=== PATIENT | female | born 1960 | race Caucasian/White ===

== ENCOUNTER 2018-09-21 09:05 | Emergency (ER) | payer MEDICAID ==
[2018-09-21] MEDS ORDERED: KETOROLAC 60 MG/2 ML VIAL IM STA (10:44)
[2018-09-21] MEDS ORDERED: ONDANSETRON ODT 4 MG TAB PO STA (10:45)
[2018-09-21] MEDS ORDERED: MORPHINE SULFATE 4 MG/ML SYRINGE IM STA (10:45)
--- NOTE | 2018-09-21 10:47 | ED ---
General Adult HPI - General Chief complaint: Extremity Injury, Lower Stated complaint: hip pain Time Seen by Provider: 09/21/18 10:00 Source: patient, EMS, RN notes reviewed Mode of arrival: EMS Limitations: no limitations - History of Present Illness Initial comments: This is a 58 year old female who presents emergency Department with a couple week history of right hip pain. Patient states she went to her chiropractor for shoulder pain and in the process he just her hips and since then her hip is gotten worse. Patient states she's gone back multiple times to see the chiropractor and it continues to get worse per patient denies any numbness or weakness. Patient states she's had no incontinence or urinary retention. Patient denies any injury or trauma to the area. Patient denies any perineum numbness. I had the patient check on her own. Patient states the pain radiates down her right leg. Patient is a recent procedures on her back. Patient denies any fevers. - Related Data Previous Rx's Medication Instructions Recorded Acetaminophen with Codeine 1 each PO Q4H #15 tab 09/21/18 [Tylenol w/codeine #3] predniSONE 40 mg PO DAILY #8 tab 09/21/18 Allergies Allergy/AdvReac Type Severity Reaction Status Date / Time Penicillins Allergy Rash/Hives Verified 09/21/18 09:47 Review of Systems ROS Statement: Those systems with pertinent positive or pertinent negative responses have been documented in the HPI. ROS Other: All systems not noted in ROS Statement are negative. Past Medical History Past Medical History: Cancer Additional Past Medical History / Comment(s): breast cancer - 2010; CDIFF in 2009 with chemo History of Any Multi-Drug Resistant Organisms: None Reported Past Surgical History: Section Past Psychological History: No Psychological Hx Reported Smoking Status: Current every day smoker Past Alcohol Use History: Occasional Past Drug Use History: None Reported General Exam - General Exam Comments Initial Comments: GENERAL: Patient is well-developed and well-nourished. Patient is nontoxic and well- hydrated and is in moderate distress. ENT: Neck is soft and supple. No significant lymphadenopathy is noted. Oropharynx is clear. Moist mucous membranes. Neck has full range of motion without eliciting any pain. EYES: The sclera were anicteric and conjunctiva were pink and moist. Extraocular movements were intact and pupils were equal round and reactive to light. Eyelids were unremarkable. PULMONARY: Unlabored respirations. Good breath sounds bilaterally. No audible rales rhonchi or wheezing was noted. CARDIOVASCULAR: There is a regular rate and rhythm without any murmurs gallops or rubs. ABDOMEN: Soft and nontender with normal bowel sounds. SKIN: Skin is clear with no lesions or rashes and otherwise unremarkable. NEUROLOGIC: Patient is alert and oriented x3. Cranial nerves II through XII are grossly intact. Motor and sensory are also intact. Normal speech, volume and content. Symmetrical smile. Patient has pain with straight leg test on the right at about 30. Patient checked her perineum and had no numbness patient did this to her self when I asked her to when I left the room because there was no nurse available. MUSCULOSKELETAL: Normal extremities with adequate strength and full range of motion. No lower extremity swelling or edema. No calf tenderness. LYMPHATICS: No significant lymphadenopathy is noted PSYCHIATRIC: Normal psychiatric evaluation. Limitations: no limitations Course Vital Signs 09/21/18 09/21/18 09/21/18 09:08 12:30 13:09 Temperature 98.6 F 98.0 F Pulse Rate 74 65 Respiratory 20 18 Rate Blood Pressure 100/60 100/60 100/56 O2 Sat by Pulse 95 97 Oximetry Medical Decision Making - Medical Decision Making X-ray of the pelvis shows no acute abnormality. X-ray of the lumbar spine shows no acute abnormality. X-ray of the femur shows a calcification which does not appear to be in acute calcification. But there is no evidence of any abnormality that would explain her pain. Disposition Clinical Impression: Sciatica Disposition: HOME SELF-CARE Instructions: Sciatica (ED) Prescriptions: Acetaminophen with Codeine [Tylenol w/codeine #3] 1 each PO Q4H #15 tab predniSONE 40 mg PO DAILY #8 tab Is patient prescribed a controlled substance at d/c from ED?: Yes When asked, does pt state using other controlled substances?: No If prescribed controlled substance>3 days was MAPS reviewed?: Prescribed <3 Days If opioid is for acute pain is fill amount 7 days or less?: Yes If Rx opioid, was Start Talking consent form obtained?: Yes Referrals: Samantha Dhillon DO [Primary Care Provider] - 1-2 days Time of Disposition: 13:43
--- NOTE | 2018-09-21 11:19 | XR ---
EXAMINATION TYPE: XR lumbosacral spine min 4V DATE OF EXAM: 09/21/2018 CLINICAL HISTORY: pain COMPARISON: NONE TECHNIQUE: Frontal, lateral, and oblique images of the lumbar spine are obtained. FINDINGS: There are 5 lumbar type vertebral bodies identified. The lumbar spine shows satisfactory alignment without evidence of acute fracture or dislocation. Vertebral body heights are within normal limits. Mild degenerative disc space narrowing. The overlying soft tissue appears unremarkable. IMPRESSION: No acute fracture or dislocation is seen in the lumbar spine.ICD 10 NO FRACTURE, INITIAL EVALUATION
--- NOTE | 2018-09-21 11:20 | XR ---
EXAMINATION TYPE: XR pelvis AP view DATE OF EXAM: 09/21/2018 CLINICAL HISTORY: pain TECHNIQUE: Single view the pelvis is submitted. FINDINGS: No evidence for fracture, dislocation or bony lesion. Joint spaces are well-preserved. S I joints appear symmetric. IMPRESSION: 1. No acute fracture or dislocation seen. ICD 10 NO FRACTURE, INITIAL EVALUATION
[2018-09-21] MEDS ORDERED: predniSONE 50 MG TAB PO STA (12:13)
--- NOTE | 2018-09-21 13:10 | XR ---
EXAMINATION TYPE: XR femur RT DATE OF EXAM: 09/21/2018 CLINICAL HISTORY: Right hip and femur pain for one week. TECHNIQUE: Two views of the right femur are obtained. COMPARISON: Same day pelvic x-ray FINDINGS: There is no acute fracture or dislocation seen in the right femur. The right hip and knee joints appear within normal limits. There is deep soft tissue calcification intertrochanteric region of right proximal femur of uncertain etiology. IMPRESSION: As above
[2018-09-21 13:11] VITALS: RESP 18
[2018-09-21 14:21] VITALS: BP 117/54; PULSE 77; TEMP 98.7
== END 2018-09-21 14:00 | disposition home or self-care (01) ==
LOC: EC 09:05
DX: M54.31 Sciatica, right side (principal); F17.200 Nicotine dependence, unspecified, uncomplicated; Z88.0 Allergy status to penicillin; Z85.3 Personal history of malignant neoplasm of breast; Z92.21 Personal history of antineoplastic chemotherapy
CPT/HCPCS: 72110; 72170; 73552; 99284; 96372 ×2; J2270; J1885; J7512